=== PATIENT | female | born 1960 | race Caucasian/White ===

== ENCOUNTER 2018-09-02 13:32 | Emergency (ER) | payer SELFPAY ==
[~2018-09-02] VITALS: Ht 172.7 cm; Wt 99.8 kg
[~2018-09-02 13:32] MED LIST: EST0625T PO; VENL75CA3 PO
[2018-09-02 14:51] VITALS: BP 114/60
== END 2018-09-02 15:41 | disposition home or self-care (01) ==
LOC: ER 13:32
DX: J02.9 Acute pharyngitis, unspecified (principal); Z90.49 Acquired absence of other specified parts of digestive tract; Z90.710 Acquired absence of both cervix and uterus; Z88.6 Allergy status to analgesic agent; Z88.2 Allergy status to sulfonamides
CPT/HCPCS: 71046

== ENCOUNTER 2019-05-12 13:55 | Emergency (ER) | payer SELFPAY ==
[~2019-05-12] VITALS: Ht 172.7 cm; Wt 102.1 kg
[2019-05-12] MEDS ORDERED: SODIUM CHLORIDE 0.9% 500 ML IV ONE (14:09)
[2019-05-12] MEDS ORDERED: methylPREDNISolone SOD SUCC 125 MG/2 ML VL IV ONE (14:15)
[2019-05-12] MEDS ORDERED: KETOROLAC TROMETH 30 MG/ML 1ML VIAL IV ONE (14:15)
[2019-05-12 14:52] LABS: Basophils # (auto) 0.1 uL; Basophils % (auto) 0.4 % (0.0-2.0); Eosinophils # (auto) 0 uL; Eosinophils % (auto) 0.3 % (0.0-7.0); Hematocrit 40.3 % (36.0-46.0); Hemoglobin 13.6 g/dL (12.2-16.2); Lymphocytes # (auto) 3.2 uL; Lymphocytes % (auto) 26.7 % (10.0-50.0); Mean Corpuscular Hemoglobin 28.6 pg (28.0-32.0); Mean Corpuscular Hgb Conc. 33.8 g/dL (32.0-36.0); Mean Corpuscular Volume 84.7 fL (80.0-100.0); Monocytes # (auto) 0.5 uL; Monocytes % (auto) 4.5 % (0.0-12.0); Neutrophils # (auto) 8.2 uL; Neutrophils % (auto) 68.1 % (37.0-80.0); Nucleated Red Blood Cells % 0.1 %; Platelet Count (auto) 324 10^3/uL (140-450); Red Blood Cells 4.76 10^6/uL (4.0-5.20); Red Cell Distribution Width 14.3 % (11.8-14.3); White Blood Cell 12.1 10^3/uL (4.4-10.8)
[2019-05-12 15:11] LABS: Albumin 3.6 g/dL (3.4-5.0); Calcium 9.6 mg/dL (8.5-10.1); Potassium 4.4 mmol/L (3.5-5.1)
[2019-05-12 15:14] LABS: BUN/Creatinine Ratio 10.9; Bilirubin, Total 0.3 mg/dL (0.2-1.0); Total Protein 7.9 g/dL (6.4-8.2)
[2019-05-12 16:23] VITALS: BP 121/82
== END 2019-05-12 16:24 | disposition home or self-care (01) ==
LOC: ER 14:06
DX: M32.9 Systemic lupus erythematosus, unspecified (principal); F17.210 Nicotine dependence, cigarettes, uncomplicated; Z90.49 Acquired absence of other specified parts of digestive tract; Z90.710 Acquired absence of both cervix and uterus; Z88.2 Allergy status to sulfonamides; Z88.6 Allergy status to analgesic agent
CPT/HCPCS: 36415; 80053; 85025; 85652; 96374; 96375; 99283; J1885; J2930; J7030

== ENCOUNTER 2020-02-10 09:43 | Emergency (ER) | payer BC, MEDICAID ==
[~2020-02-10] VITALS: Ht 172.7 cm; Wt 90.7 kg
[2020-02-10] MEDS ORDERED: TETRACAINE HCL 0.5% OPTH(EYE) SOLN 4ML RIGHTEYE ONE (11:30)
[2020-02-10] MEDS ORDERED: FLUORESCEIN SOD 1 MG TEST STRIP RIGHTEYE ONE (11:30)
[2020-02-10 11:58] VITALS: BP 126/93
== END 2020-02-10 12:15 | disposition home or self-care (01) ==
LOC: ER 09:43
DX: B02.30 Zoster ocular disease, unspecified (principal); Z90.49 Acquired absence of other specified parts of digestive tract; Z90.710 Acquired absence of both cervix and uterus; Z88.2 Allergy status to sulfonamides; Z88.6 Allergy status to analgesic agent

== ENCOUNTER 2021-04-14 07:39 | Emergency (ER) | payer MEDICAID ==
[~2021-04-14] VITALS: Ht 172.7 cm; Wt 99.8 kg
[2021-04-14] MEDS ORDERED: cefTRIAXone SOD 1,000 MG VL IM ONE (08:45)
[2021-04-14] MEDS ORDERED: IBUP800T27 PO (09:03)
[2021-04-14] MEDS ORDERED: AMOX-277 PO (09:03)
[2021-04-14 09:04] VITALS: BP 121/85
== END 2021-04-14 09:10 | disposition home or self-care (01) ==
LOC: ER 07:39
DX: J03.90 Acute tonsillitis, unspecified (principal); H66.91 Otitis media, unspecified, right ear; E78.5 Hyperlipidemia, unspecified; I10 Essential (primary) hypertension; F17.210 Nicotine dependence, cigarettes, uncomplicated; Z90.49 Acquired absence of other specified parts of digestive tract; Z90.710 Acquired absence of both cervix and uterus; Z88.2 Allergy status to sulfonamides
CPT/HCPCS: 70450; 96372; 99284; J0696

== ENCOUNTER 2024-06-21 06:41 | Emergency (ER) | payer MEDICAID, SELFPAY ==
[~2024-06-21] VITALS: Ht 170.2 cm; Wt 109.7 kg
[~2024-06-21 06:41] MED LIST changes: +AMOX875T4 PO; +IBUP-1456 PO
--- NOTE | 2024-06-21 07:22 | ED.PDOC ---
SOB-HPI HPI Comments 63F presents to the ER w/ prior Hx of anxiety which may be associated to the c/c of SOB for the past 3 days. Pt reports on having a "Bad JEAN" and cough when she lays down. PMHx of DM, High Lipids, Neuropathy, Arthritis, Diverticulitis, HTN and Depression. SHx of Hysterectomy and Cholecystectomy. Social Hx of tobacco use, but denies alcohol and substance use. Denies chill, fever, N/V/D, CP or other associated symptom's, modifiers, or recent injuries or sick contact at this time. Chief Complaint: Shortness of Breath Time Seen by MD: 07:00 Primary Care Provider: NONE Reviewed notes: Nurses Notes, Medications, Allergies Information Source: Patient Mode of Arrival: Ambulatory Severity: Moderate Timing: Days Duration: Since onset, Days Context: With Light Exertion PE Risk Factors: None History of: Anxiety Prehospital treatment: None Modifying Factors: Laying flat Associated Signs and Symptoms: Cough If cough with SOB: Non-Productive Past Medical History PAST MEDICAL HISTORY: Anxiety, Arthritis, Depression, DM, High Lipids, HTN Past Medical History (Other): Neuropathy and Diverticulitis Surgical History: Cholecystectomy, Hysterectomy [employer]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: No Pertinent [employer]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 Family History Family History: Reviewed,noncontributory to illness, Unknown Social History Smoker: Cigarettes Alcohol: Denies ETOH Use Drugs: Denies Drug Use Lives In: Home Constitutional: denies: chills, diaphoresis, fatigue, fever, malaise, sweats, weakness, others EENTM: denies: blurred vision, double vision, ear bleeding, ear discharge, ear drainage, ear pain, ear ringing, eye pain, eye redness, hearing loss, mouth pain, mouth swelling, nasal discharge, nose bleeding, nose congestion, nose pain, photophobia, tearing, throat pain, throat swelling, voice changes, others Respiratory: reports: cough, shortness of breath; denies: hemoptysis, orthopnea, SOB at rest, SOB with excertion, stridor, wheezing, others Cardiovascular: denies: chest pain, dizzy spells, diaphoresis, Dyspnea on exertion, edema, irregular heart beat, left arm pain, lightheadedness, palpitations, PND, syncope, others Gastrointestinal: denies: abdomen distended, abdominal pain, blood streaked bowels, constipated, diarrhea, dysphagia, difficulty swallowing, hematemesis, melena, nausea, poor appetite, poor fluid intake, rectal bleeding, rectal pain, vomiting, others Genitourinary: denies: abnormal vagina bleeding, burning, dyspareunia, dysuria, flank pain, frequency, hematuria, incontinence, pain, , vagina discharge, urgency, others Neurological: reports: headache; denies: dizziness, fainting, left sided numbness, left sided weakness, numbness, paresthesia, pre-existing deficit, right sided numbness, right sided weakness, seizure, speech problems, tingling, tremors, weakness, others Musculoskeletal: denies: back pain, gout, joint pain, joint swelling, muscle pain, muscle stiffness, neck pain, others Integumetry: denies: bruises, change in color, change in hair/nails, dryness, laceration, lesions, lumps, rash, wounds, others Allergic/Immunocompromised: denies: Difficulty Healing, Frequent Infections, Hives, Itching, others Hematologic/Lymphatic: denies: anemia, blood clots, easy bleeding, easy bruising, swollen glands, others Endocrine: denies: excessive hunger, excessive sweating, excessive thirst, excessive urination, flushing, intolerance to cold, intolerance to heat, unexplained weight gain, unexplained weight loss, others Psychiatric: denies: anxiety, bipolar disorder, depression, hopeless, panic disorder, schizophrenia, sleepless, suicidal, others All Other Systems: Reviewed and Negative Physical Exam General Appearance: Mild Distress, Moderate Distress, Obese HEENT: Normal ENT Inspection, PERRL/EOMI, Pharynx Normal, TMs Normal Neck: Full Range of Motion, Non-Tender, Normal, Normal Inspection Respiratory: Chest Non-Tender, Lungs Clear, No Accessory Muscle Use, No Respi ratory Distress, Normal Breath Sounds Cardiovascular: No Edema, No JVD, No Murmur, No Gallop, Normal Peripheral Pulses, Tachycardia Breast Exam: Deferred Gastrointestinal: No Organomegaly, Non Tender, No Pulsatile Mass, Normal Bowel Sounds, Soft, Other (obesity) Genitalia: Deferred Pelvic: Deferred Rectal: Deferred Extremities: No calf tenderness, Normal capillary refill, Normal inspection, Normal range of motion, Non-tender, No pedal edema Musculoskeletal : Apperance: Normal Neurologic: Alert, crime scene examiner II-XII nml as Tested, Headache, No Motor Deficits, Normal Affect, Normal Mood, No Sensory Deficits Cerebellar Function: Normal Reflexes: Normal Skin: Dry, Normal Color, Warm Peripheral Pulses: 2+ carotid (R), 2+ carotid (L) Lymphatic: No Adenopathy Was a procedure done? Was a procedure done?: No Differential Dx Differential Diagnosis: Anxiety, Hypertension, Hyponatremia, Pneumonia, Sinusitis, URI, Other Comments Flu syndrome cerebral mass migraine headache uncontrolled diabetes rheumatoid arthritis pneumonia X-Ray, Labs, Meds, VS Vital Signs Date Time Temp Pulse Resp B/P (MAP) Pulse Ox O2 Delivery O2 Flow Rate FiO2 06/21/24 12:55 98 06/21/24 12:00 94 25 142/96 (111) 93 06/21/24 12:00 95 06/21/24 10:00 102 24 140/72 (94) 93 06/21/24 08:00 112 20 94 Nasal Cannula* 2 28 06/21/24 08:00 110 06/21/24 08:00 108 20 155/96 (115) 94 06/21/24 08:00 94 Nasal Cannula* 2 28 06/21/24 07:30 98.1 120 22 148/81 (103) 87 98.1 06/21/24 06:57 20 92 Room Air 0 06/21/24 06:57 97.6 125 20 122/82 (95) 92 Lab Test 06/21/24 10:19 06/21/24 08:39 06/21/24 07:33 Range/Units POC Glucose 125 H 70-106 mg/dl White Blood Count 7.7 4.4-10.8 10^3/uL Red Blood Count 4.48 4.0-5.20 10^6/uL Hemoglobin 13.1 12.2-16.2 g/dL Hematocrit 38.4 36.0-46.0 % Mean Corpuscular Volume 85.6 80.0-100.0 fL Mean Corpuscular Hemoglobin 29.2 28.0-32.0 pg Mean Corpuscular Hemoglobin Concent 34.1 32.0-36.0 g/dL Red Cell Distribution Width 14.8 H 11.8-14.3 % Platelet Count 252 140-450 10^3/uL Mean Platelet Volume 8.7 6.9-10.8 fL Neutrophils (%) (Auto) 69.3 37.0-80.0 % Lymphocytes (%) (Auto) 20.6 10.0-50.0 % Monocytes (%) (Auto) 9.4 0.0-12.0 % Eosinophils (%) (Auto) 0.4 0.0-7.0 % Basophils (%) (Auto) 0.3 0.0-2.0 % Neutrophils # (Auto) 5.3 1.6-8.6 10 ^3/uL Lymphocytes # (Auto) 1.6 0.4-5.4 10 ^3/uL Monocytes # (Auto) 0.7 0-1.3 10 ^3/uL Eosinophils # (Auto) 0 0-0.8 10 ^3/uL Basophils # (Auto) 0 0-0.2 10 ^3/uL Nucleated Red Blood Cells 0.0 % Sodium Level 137 136-145 mmol/L Potassium Level 4.2 3.5-5.1 mmol/L Chloride Level 102 98-107 mmol/L Carbon Dioxide Level 27 20-31 mmol/L Anion Gap 8 5-15 Blood Urea Nitrogen 14 9-23 mg/dL Creatinine 1.12 H 0.550-1.02 mg/dL Glomerular Filtration Rate Calc 55 >90 mL/min BUN/Creatinine Ratio 12.5 10.0-20.0 Serum Glucose 119 H 74-106 mg/dL Calcium Level 11.4 H 8.7-10.4 mg/dL Magnesium Level 1.9 1.6-2.6 mg/dL Total Bilirubin 0.3 0.2-1.0 mg/dL Aspartate Amino Transferase (AST) 19 13-40 U/L Alanine Aminotransferase (ALT) 23 7-40 U/L Alkaline Phosphatase 159 H 46-116 U/L Troponin I High Sensitivity 41 *H </=34 ng/L Total Protein 7.1 5.7-8.2 g/dL Albumin 4.6 3.2-4.8 g/dL Influenza Type A Antigen Negative Negative Influenza Type B Antigen Negative Negative SARS-CoV-2 Antigen (Rapid) Negative NEGATIVE Current Medications Medications (Trade) Dose Ordered Sig/Joy Route Start Time Stop Time Status Last Admin Sodium Chloride 1,000 ml @ 250 mls/hr Q4H ONCE IV 06/21/24 07:15 06/21/24 11:14 DC 06/21/24 08:03 Ketorolac Tromethamine (Toradol Injection) 30 mg ONCE ONCE IV 06/21/24 07:15 06/21/24 07:16 DC 06/21/24 08:03 Ondansetron HCl (Zofran) 4 mg ONCE ONCE IV 06/21/24 07:15 06/21/24 07:16 DC 06/21/24 08:02 X-Ray, Labs, Meds, VS Comment Course in the emergency department eventful patient came in complaining of headache shortness of breath and cough Blood pressure 122/82 with a heart rate of 125 and a pulse ox of 92 Influenza a negative influenza B negative COVID-19 negative CBC normal CMP troponin at 41 with a blood sugar of 125 Magnesium 1.9 Calcium 11.4 patient is taking 2 g of calcium daily so she is told to stop GFR at55 Patient is feeling better and requested to be discharged Time of 1ST Reevaluation: 07:30 Reevaluation 1ST: Unchanged Time of 2ND Reevaluation: 12:47 Reevaluation 2ND: Improved Patient Education/Counseling: Diagnosis, Treatment, Prognosis Family Education/Counseling: Diagnosis, Treatment, Prognosis, No Family Present Departure 1 Departure Time of Disposition: 13:21 Impression: Primary Impression: Viral syndrome Additional Impressions: Sinus headache Hyperkalemia Disposition: 01 HOME / SELF CARE / HOMELESS Condition: Fair Additional Instructions: Follow up with your PCP take ibuprofen and Tylenol for the headache Discharged With: Self Critical Care Note Critical Care Time?: No Stability Stability form required: No Heart Score Heart Score: Heart Score Response (Comments) Value History N/A 0 EKG N/A 0 Age 45-64 1 Risk Factors 1 or 2 risk factors 1 Troponin N/A 0 Total 2 I personally scribed for GLADYS ESPINOSA MD ([email or web address]) on 06/21/24 at 07:22. Electronically submitted by Sukhjinder Fajardo ([email or web address]). GLADYS ESPINOSA MD Jun 21, 2024 07:22
[2024-06-21 07:30] VITALS: TEMP 98.1
[2024-06-21 08:00] VITALS: PULSE 112; RESP 20; O2SAT 94
[2024-06-21] MEDS: ONDANSETRON HCL 4 MG/2 ML VIAL IV ONE (08:02)
[2024-06-21] MEDS: KETOROLAC TROMETH 30 MG/ML 1ML VIAL IV ONE (08:03)
[2024-06-21] MEDS: SODIUM CHLORIDE 0.9% 1,000 ML IV ONE (08:03)
[2024-06-21 08:19] LABS: COVID19 ANTIGEN SOFIA FIA NEGATIVE (NEGATIVE); Rapid Influenza A Negative (Negative); Rapid Influenza B Negative (Negative)
--- NOTE | 2024-06-21 08:35 | DVH ---
CLINICAL INFORMATION: 63 years old, Female; Severe headache for three days. TECHNIQUE: Axial imaging was obtained through the brain without contrast. Coronal and sagittal refor matted images were obtained, reviewed, and stored. Images were reviewed in brain and bone windows. A ll CT scans at this medical facility are performed using dose modulation techniques as appropriate to a performed exam including the following: Automated exposure control was utilized; adjustment of the MA and/or KV according to patient size; and use of iterative reconstruction technique. CTDIvol = 53.37 mGy DLP = 854.59 mGy-cm COMPARISON: HEAD WITHOUT CONTRAST on DOS: 04/14/21 FINDINGS: There is no acute intracranial hemorrhage or extraaxial fluid collection. No mass effect o r midline shift. Empty sella incidentally noted. The ventricles and sulci are within normal limits in size for age. Basal cisterns are patent. The calvarium is unremarkable. Mild mucosal thickening of the paranasal sinuses. Mastoid air cells are clear. IMPRESSION: 1. No CT evidence of acute intracranial abnormality. 2. Nonacute findings as described above.
--- NOTE | 2024-06-21 08:38 | DVH ---
CLINICAL INFORMATION: 63 years old, Female; Shortness of breath. TECHNIQUE: Frontal and lateral chest radiographs were obtained. COMPARISON: None FINDINGS: Lungs: Mild atelectasis in the lung bases. No focal consolidation. Cardiac: Heart size is within normal limits. Pulmonary vasculature: Unremarkable Mediastinum/andie: Within normal limits. Bones: No evidence of acute osseous abnormality. Other: No other significant finding. IMPRESSION: No evidence of acute disease in the chest.
[2024-06-21 09:05] LABS: Basophils # (auto) 0 10 ^3/uL (0-0.2); Basophils % (auto) 0.3 % (0.0-2.0); Eosinophils # (auto) 0 10 ^3/uL (0-0.8); Eosinophils % (auto) 0.4 % (0.0-7.0); Hematocrit 38.4 % (36.0-46.0); Hemoglobin 13.1 g/dL (12.2-16.2); Lymphocytes # (auto) 1.6 10 ^3/uL (0.4-5.4); Lymphocytes % (auto) 20.6 % (10.0-50.0); Mean Corpuscular Hemoglobin 29.2 pg (28.0-32.0); Mean Corpuscular Hgb Conc. 34.1 g/dL (32.0-36.0); Mean Corpuscular Volume 85.6 fL (80.0-100.0); Monocytes # (auto) 0.7 10 ^3/uL (0-1.3); Monocytes % (auto) 9.4 % (0.0-12.0); Neutrophils # (auto) 5.3 10 ^3/uL (1.6-8.6); Neutrophils % (auto) 69.3 % (37.0-80.0); Platelet Count (auto) 252 10^3/uL (140-450); Red Blood Cells 4.48 10^6/uL (4.0-5.20); Red Cell Distribution Width 14.8 % (11.8-14.3); White Blood Cell 7.7 10^3/uL (4.4-10.8)
[2024-06-21 09:32] LABS: Alanine Aminotransferase 23 U/L (7-40); Albumin 4.6 g/dL (3.2-4.8); Anion Gap 8 (5-15); Aspartate Aminotransferase 19 U/L (13-40); BUN/Creatinine Ratio 12.5 (10.0-20.0); Blood Urea Nitrogen 14 mg/dL (9-23); Carbon Dioxide 27 mmol/L (20-31); Chloride 102 mmol/L (98-107); Magnesium 1.9 mg/dL (1.6-2.6); Potassium 4.2 mmol/L (3.5-5.1); Sodium 137 mmol/L (136-145)
[2024-06-21 09:33] LABS: Bilirubin, Total 0.3 mg/dL (0.2-1.0); Total Protein 7.1 g/dL (5.7-8.2)
[2024-06-21 09:38] LABS: Alkaline Phosphatase 159 U/L (46-116); Calcium 11.4 mg/dL (8.7-10.4); Glucose 119 mg/dL (74-106)
[2024-06-21] MEDS ORDERED: VENLAFAXINE HCL 37.5MG TABLET PO ONE (11:00)
[2024-06-21 13:38] VITALS: BP 148/93; PULSE 90; RESP 25; O2SAT 97
--- NOTE | 2024-06-23 08:14 | ECG ---
[facility] Test Date: 2024-06-21 Test Time: 07:09:03 Pat Name: PATRICIA FERNANDES Department: ER Room: Gender: F Garde Manger: DANTE : 1960 Requested By: GLADYS ESPINOSA Order Number: [id number] Reading MD: Julio Martines Measurements Intervals [place] Rate: 115 P: 54 FL: 165 QRS: -47 QRSD: 126 T: 119 QT: 347 QTc: 480 Interpretive Statements Sinus tachycardia Left bundle branch block Baseline wander in lead(s) I,III,aVR,aVL,V1,V2,V3,V4,V6 Electronically Signed On 06-23-2024 8:24:07 PST by Julio Martines Please click the below link to view image of tracing.
--- NOTE | 2024-06-23 15:23 | ECG ---
[facility] Test Date: 2024-06-21 Test Time: 12:55:31 Pat Name: PATRICIA FERNANDES Department: ER Room: Gender: F Technologist Development: SALLY : 1960 Requested By: GLADYS ESPINOSA Order Number: [id number] Reading MD: Measurements Intervals [place] Rate: 98 P: 69 [place]: 189 QRS: -38 QRSD: 128 T: 118 QT: 381 QTc: 487 Interpretive Statements Sinus rhythm Left bundle branch block Please click the below link to view image of tracing.
== END 2024-06-21 13:40 | disposition home or self-care (01) ==
LOC: ER 06:41
DX: B34.9 Viral infection, unspecified (principal); R51.9 Headache, unspecified; E87.5 Hyperkalemia; F41.9 Anxiety disorder, unspecified; M19.90 Unspecified osteoarthritis, unspecified site; F32.9 Major depressive disorder, single episode, unspecified; E11.40 Type 2 diabetes mellitus with diabetic neuropathy, unspecified; F17.210 Nicotine dependence, cigarettes, uncomplicated; I10 Essential (primary) hypertension; Z90.49 Acquired absence of other specified parts of digestive tract; Z90.710 Acquired absence of both cervix and uterus; Z20.822 Contact with and (suspected) exposure to COVID-19
CPT/HCPCS: 36415; 70450; 71046; 80053; 82962; 83735; 84484; 85025; 87426; 87804; 93005; 96361; 96374; 96375; 99285; J1885; J2405; J7030